=== PATIENT | male | born 1975 | race Caucasian/White ===

== ENCOUNTER 2023-11-28 13:06 | Emergency (ER) | payer OTHER ==
[~2023-11-28] VITALS: Ht 193 cm; Wt 106.4 kg
[2023-11-28 13:31] VITALS: TEMP 98.1
[2023-11-28 15:05] LABS: COLLECTION METHOD CLEAN CATCH
[2023-11-28 15:12] LABS: BASO % 0.8 % (0.0-2.0); EOS # 0.2 K/mm3 (0.0-0.7); EOS % 3.4 % (0.0-4.0); GRAN # 3.3 K/mm3 (1.4-6.5); GRAN % 63.2 % (42.2-75.2); HEMOGLOBIN 12.4 g/dl (13.5-18.0); LYMPH # 1.1 K/mm3 (1.2-3.4); LYMPH % 21.3 % (20.0-51.0); MEAN CELL VOLUME 93 fl (80.0-100.0); MEAN CORPUSCULAR HEMOGLOBIN 31 pg (27-31); MEAN CORPUSCULAR HGB CONC 34 g/dl (33.0-37.0); MEAN PLATELET VOLUME 10.9 fl (7.4-10.4); MONO # 0.5 K/mm3 (0.1-0.6); PLATELET COUNT 232 K/mm3 (130-400); RED BLOOD COUNT 3.95 M/mm3 (4.20-5.60); REDCELL DISTRIBUTION WIDTH-CV 12.3 % (11.5-14.5); URINE APPEARANCE Clear (CLEAR/HAZY); URINE COLOR Yellow (YELLOW)
[2023-11-28 15:13] LABS: URINE BLOOD 2+ (NEGATIVE); URINE GLUCOSE NEGATIVE (NEGATIVE); URINE KETONE NEGATIVE (NEGATIVE); URINE NITRATE NEGATIVE (NEGATIVE); URINE PROTEIN(semi-quant) NEGATIVE (BEGATIVE); URINE UROBILINOGEN 0.2 E.U/dL (0.2-1.0)
[2023-11-28 15:14] LABS: HEMATOCRIT 36.7 % (42.0-52.0)
[2023-11-28] MEDS ORDERED: NS 1,000 ML IV ONE (15:15)
[2023-11-28 15:35] LABS: ALBUMIN 3.5 g/dL (3.5-5.0); BILIRUBIN,TOTAL 0.4 mg/dL (0.2-1.2); CALCIUM 9.8 mg/dL (8.4-10.2); CREATININE, serum 1.11 mg/dL (0.72-1.25); POTASSIUM 4.6 mEq/L (3.5-4.5); TOTAL PROTEIN 7.4 g/dl (6.2-8.1)
[2023-11-28 16:12] VITALS: BP 168/102; PULSE 57
== END 2023-11-28 16:12 | disposition home or self-care (01) ==
LOC: COL.ER 13:06
PROVIDERS: Physician Assistant
DX: R53.83 Other fatigue (principal); Z87.442 Personal history of urinary calculi
CPT/HCPCS: J7030